=== PATIENT | male | born 1985 | race Caucasian/White ===

== ENCOUNTER → 2018-08-21 | Outpatient (REF) | payer OTHER ==
[2018-08-21 20:51] LABS: ALBUMIN 4.2 GM/DL (3.2-5.2); ALT/SGPT 44 U/L (12-78); BILIRUBIN,TOTAL 0.4 MG/DL (0.2-1.0); BLOOD UREA NITROGEN 16 MG/DL (7-18); CALCIUM LEVEL 8.9 MG/DL (8.5-10.1); CARBON DIOXIDE LEVEL 30 MEQ/L (21-32); CHLORIDE LEVEL 107 MEQ/L (98-107); CHOLESTEROL LEVEL 138 MG/DL (<200); CHOLESTEROL RISK RATIO 3.285 (<5); CREATININE FOR GFR 0.95 MG/DL (0.70-1.30); GLOMERULAR FILTRATION RATE > 60.0 (>60); GLUCOSE, FASTING 108 MG/DL (70-100); HDL CHOLESTEROL 42 MG/DL (>40); LDL CHOLESTEROL 77 MG/DL (<100); NON-HDL-C 96 MG/DL; POTASSIUM SERUM 4.1 MEQ/L (3.5-5.1); SODIUM LEVEL 141 MEQ/L (136-145); THYROID STIMULATING HORMONE 0.762 uIU/ML (0.358-3.740); TOTAL PROTEIN 7.4 GM/DL (6.4-8.2); TRIGLYCERIDES LEVEL 96 MG/DL (<150)
[2018-08-21 20:52] LABS: HEMOGLOBIN A1c 7.5 %
[2018-08-21 21:06] LABS: MALB URINE SIEMENS 21.9 MG/L; MAU/CREAT RATIO 16.2 MCG/MG (0.0-30.0)
== END ==
LOC: M SFHCLERA 10:04
PROVIDERS: ATTEND Family Medicine
DX: E11.9 Type 2 diabetes mellitus without complications (principal)

== ENCOUNTER → 2019-08-08 | Outpatient (CLI) | payer BC, OTHER ==
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
== END ==
LOC: M PAIN 11:00
PROVIDERS: ATTEND Family Medicine
DX: M51.17 Intervertebral disc disorders with radiculopathy, lumbosacral region (principal)

== ENCOUNTER → 2019-08-23 | Outpatient (CLI) | payer OTHER | LOC: M LABSMTC 10:32 | PROVIDERS: ATTEND Anesthesiology | DX: Z03.818 Encounter for observation for suspected exposure to other biological agents ruled out (principal); Z11.59 Encounter for screening for other viral diseases ==

== ENCOUNTER → 2019-08-28 | Outpatient (CLI) | payer BC, OTHER ==
[~2019-08-28] MED LIST: ISOVUE-M 300 61% 15ML VIAL As Ordered ONE; LIDOCAINE 1% SDV 30ML VIAL As Ordered ONE; methylPREDNISolone SUSP 40MG/ML 1ML VIAL (DEPO MEDROL) As Ordered ONE
--- NOTE | 2019-08-28 13:14 | REP ---
Partial lumbar spine series: Three views . History: Injection procedure for pain. 15 seconds of fluoroscopy time is reported. Findings: A sequence of three fluoroscopically obtained last image hold procedural spot radiographs of the lumbar spine document needle position and contrast injection associated with injection procedure. Electronically Signed by Sal Christopher MD 08/28/2019 01:05 P
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
== END ==
LOC: M PAIN 10:30
PROVIDERS: ATTEND Anesthesiology
DX: M51.16 Intervertebral disc disorders with radiculopathy, lumbar region (principal)
CPT/HCPCS: 62323; J1030; Q9967